=== PATIENT | female | born 1970 | race Caucasian/White ===

== ENCOUNTER 2018-01-21 16:34 | Emergency (ER) | payer BC ==
[~2018-01-21] VITALS: Ht 157.5 cm; Wt 81.8 kg
[~2018-01-21 16:34] MED LIST: AUGMENTIN875 MG PO; GABAPENTIN300 MG PO; GABAPENTIN600 MG PO; HYDROCODON-ACE1 EAC7 PO; LANSOPRAZOLE30 MG PO; LISINOPRIL20 MG PO; MELOXICAM15 MG PO; MIRAPEX0.5 MG PO; MOBIC15 MG PO; NORCO 5/3251 TABLET PO; PRAMIPEXOLE DI0.5 MG PO; PREVACID30 MG PO; TRAMADOL HCL50 MG PO; TRAZODONE HCL50 MG PO; ULTRAM50 MG PO; ZESTRIL20 MG PO; ZOFRAN4 MG PO
[2018-01-21 17:20] LABS: HEMATOCRIT 42.5 % (36.0-46.0); HEMOGLOBIN 14.5 G/DL (11.9-15.5); MCH 29.5 PG (29.0-34.0); MCHC 34.1 G/DL (30.0-36.0); MCV 86.6 FL (83-99); PLATELET COUNT 275 K/uL (156-360); RBC DIS.WIDTH-CV 13.3 % (11.8-14.6); RBC DIS.WIDTH-SD 42.4 % (39-53); RED BLOOD COUNT 4.91 M/uL (3.80-5.20); WHITE BLOOD COUNT 8.1 K/uL (4.1-10.2)
[2018-01-21 17:43] LABS: CHLORIDE 105 MEQ/L (99-109); SODIUM 138 MEQ/L (136-147)
[2018-01-21 17:48] LABS: CREATININE 0.6 MG/DL (0.6-1.3); GFR ESTIMATE (CALCULATED) > 59 mL/min/; GLUCOSE 85 mg/dL (70-99); UREA NITROGEN (BUN) 12 mg/dL (9-23)
[2018-01-21 17:53] LABS: TROP-I INTERPRETATION NEGATIVE; TROPONIN-I < 0.01 ng/mL (0.0-0.30)
[2018-01-21 19:30] LABS: D-DIMER ELISA < 150.00 ng/mLDDU (<230)
[2018-01-21 19:48] LABS: TROP-I INTERPRETATION NEGATIVE; TROPONIN-I 0.02 ng/mL (0.0-0.30)
[2018-01-21 21:49] VITALS: BP 141/69
== END 2018-01-21 21:38 | disposition home or self-care (01) ==
LOC: EME 16:34
PROVIDERS: Nurse Practitioner Family
DX: R07.9 Chest pain, unspecified (principal); K21.9 Gastro-esophageal reflux disease without esophagitis; F41.9 Anxiety disorder, unspecified; J45.909 Unspecified asthma, uncomplicated; F17.200 Nicotine dependence, unspecified, uncomplicated
CPT/HCPCS: 71046; 71275; 80048; 84484; 85027; 85379; 93005; 99281; 99285

== ENCOUNTER 2018-03-10 15:20 | Emergency (ER) | payer BC | END 2018-03-10 15:59 | disposition left against medical advice (07) | LOC: EME 15:20 | DX: R42 Dizziness and giddiness (principal); Z53.21 Procedure and treatment not carried out due to patient leaving prior to being seen by health care provider ==